=== PATIENT | female | born 1955 | race African-American/Black ===

== ENCOUNTER 2025-09-08 14:58 | Emergency (ER) | payer OTHER, MEDICARE, MEDICAID ==
[~2025-09-08] VITALS: Ht 172.7 cm; Wt 84.0 kg
[2025-09-08 15:00] VITALS: TEMP 36.9; O2SAT 100
[2025-09-08] MEDS: KETOROLAC 15MG/ML VIAL IM ONE (17:33)
[2025-09-08] MEDS: LIDOCAINE 5% PATCH TOP SCH (17:34)
[2025-09-08 18:16] LABS: BASOPHILS % 0.7 % (0.0-2.0); EOSINOPHILS % 1.9 % (0.0-5.0); HEMATOCRIT. 38.6 % (36.0-48.0); HEMOGLOBIN. 12.0 g/dL (12.0-16.0); LYMPHOCYTES % 20.7 % (20.0-50.0); MEAN PLATELET VOLUME 9.0 fl (7.4-10.4); MONOCYTES % 5.2 % (2.0-8.0); NEUTROPHILS % 71.5 % (40.0-76.0); PLATELET 274 x1000/uL (130-400); RED BLOOD CELL COUNT 5.01 mill/uL (4.2-5.4); RED CELL DISTRIBUTION WIDTH 16.7 % (11.6-14.6)
[2025-09-08 18:30] LABS: CREATININE 1.3 mg/dL (0.6-1.0); UREA NITROGEN BLOOD 21 mg/dL (9-23)
[2025-09-08 18:32] LABS: ASPARTATE AMINOTRANSFERASE 18 IU/L (<34); BILIRUBIN DIRECT < 0.1 mg/dL (<=3.0); BILIRUBIN TOTAL 0.4 mg/dL (0.1-1.0); PROTEIN TOTAL 7.7 g/dL (6.0-8.3)
[2025-09-08] MEDS: AMLODIPINE 10MG TABLET PO ONE (18:47)
[2025-09-08] MEDS: INSULIN LISPRO 100 UNITS/ML SUBCUT ONE (18:48)
[2025-09-08] MEDS ORDERED: LIDO700A30 TP (19:09)
[2025-09-08] MEDS ORDERED: TOPUD MT (19:09)
[2025-09-08 19:34] VITALS: BP 160/84; PULSE 78; RESP 14; O2SAT 100
== END 2025-09-08 19:55 | disposition home or self-care (01) ==
LOC: ER 14:58
DX: S52.615A Nondisplaced fracture of left ulna styloid process, initial encounter for closed fracture (principal); E11.9 Type 2 diabetes mellitus without complications; I10 Essential (primary) hypertension; R51.9 Headache, unspecified; X58.XXXA Exposure to other specified factors, initial encounter; Y93.89 Activity, other specified; Y92.410 Unspecified street and highway as the place of occurrence of the external cause; Y99.8 Other external cause status
CPT/HCPCS: 99285; 70450; 71045; 80076; 80048; 85025; 36415; 73030; 73110; 72125; 96372; J1885; J1815